=== PATIENT | male | born 1975 | race Two or more races ===

== ENCOUNTER 2019-06-01 09:33 | Emergency (ER) | payer OTHER ==
[~2019-06-01] VITALS: Ht 185.4 cm; Wt 112.0 kg
[~2019-06-01 09:33] MED LIST: AMLODIPINE BESYL5 MG ORAL
[2019-06-01 09:42] VITALS: BP 142/97
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
[2019-06-01] MEDS ORDERED: Ketorolac 30mg Inj IM ONE (09:45)
[2019-06-01] MEDS ORDERED: Methocarbamol 500mg tab ORAL ONE (09:45)
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
--- NOTE | 2019-06-01 10:34 | NUR ---
ED Nurse Note:pt. is back from CT scan
[2019-06-01 10:40] VITALS: BP 136/89
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
[2019-06-01] MEDS ORDERED: IBUPROFEN600 MG ORAL (11:24)
[2019-06-01] MEDS ORDERED: ROBAXIN-750750 MG PO (11:24)
--- NOTE | 2019-06-01 11:36 | NUR ---
ER DISCHARGE NOTE: Patient is cleared to be discharged per ERMD, pt is aox4, on room air, with stable vital signs. pt was given dc and prescription instructions, pt was able to verbalize understanding, pt is able to ambulate with steady gait. pt took all belongings.
== END 2019-06-01 11:40 | disposition home or self-care (01) ==
LOC: EDBD 09:33 → EMR 10:46
DX: S16.1XXA Strain of muscle, fascia and tendon at neck level, initial encounter (principal); M54.9 Dorsalgia, unspecified; M62.830 Muscle spasm of back; I10 Essential (primary) hypertension; V43.52XA Car driver injured in collision with other type car in traffic accident, initial encounter; Y92.410 Unspecified street and highway as the place of occurrence of the external cause
CPT/HCPCS: 72131; 96372; 99284; J1885